=== PATIENT | male | born 1990 | race Two or more races ===

== ENCOUNTER 2024-05-10 23:13 | Emergency (ER) | payer OTHER ==
[~2024-05-10] VITALS: Ht 162.6 cm; Wt 63.6 kg
[2024-05-11] MEDS: IPRATROPIUM BROM 0.5 MG/2.5ML INH SOL NEB ONE (00:01)
[2024-05-11] MEDS: ALBUTEROL SULF 2.5 MG/0.5ML(0.5%) NEB SOLN NEB ONE (00:01)
[2024-05-11] MEDS ORDERED: PRED20TA2 PO (01:47)
[2024-05-11] MEDS ORDERED: ALBUAER3 IN (01:47)
[2024-05-11 01:57] VITALS: BP 131/82; PULSE 108; RESP 20; O2SAT 93
[2024-05-11] MEDS: predniSONE 20 MG TAB PO ONE (01:58)
== END 2024-05-11 02:02 | disposition home or self-care (01) ==
LOC: ER 23:13
DX: J45.901 Unspecified asthma with (acute) exacerbation (principal)
CPT/HCPCS: 71045; 94640; 99283; J7512